=== PATIENT | female | born 2000 | race African-American/Black ===

== ENCOUNTER 2022-04-03 14:21 | Emergency (ER) | payer OTHER ==
[~2022-04-03] VITALS: Ht 157.5 cm; Wt 57.0 kg
[2022-04-03 14:22] VITALS: BP 116/63
== END 2022-04-03 17:53 | disposition left against medical advice (07) ==
LOC: M ED 14:21
DX: Z53.21 Procedure and treatment not carried out due to patient leaving prior to being seen by health care provider (principal)

== ENCOUNTER → 2022-07-03 | Outpatient (CLI) | payer OTHER | LOC: M PLAIMG 12:25 | PROVIDERS: ATTEND General Practice | DX: M54.2 Cervicalgia (principal) ==

== ENCOUNTER → 2022-07-11 | Outpatient (REF) | LOC: M PLAIMG 10:39 | PROVIDERS: ATTEND Internal Medicine | DX: R52 Pain, unspecified (principal) ==